=== PATIENT | female | born 1945 | race African-American/Black ===

== ENCOUNTER 2017-11-27 13:55 | Emergency (ER) | payer MEDICARE, OTHER ==
[~2017-11-27] VITALS: Ht 162.6 cm; Wt 76.0 kg
[2017-11-27 21:34] LABS: CLARITY URINE CLEAR (CLEAR); COLOR URINE YELLOW (YELLOW); KETONES URINE NEGATIVE (NEGATIVE); LEUKOCYTE ESTERASE URINE NEGATIVE (NEGATIVE); NITRITE URINE NEGATIVE (NEGATIVE); OCCULT BLOOD URINE NEGATIVE (NEGATIVE); PROTEIN URINE NEGATIVE (NEGATIVE); SPECIFIC GRAVITY URINE 1.023 (1.005-1.030); UROBILINOGEN URINE 0.2 E.U./dL (0.2-1.0)
[2017-11-27 22:58] LABS: BASOPHILS % 0.7 % (0.0-2.0); EOSINOPHILS % 0.7 % (0.0-5.0); HEMATOCRIT. 39.6 % (36.0-48.0); HEMOGLOBIN. 13.4 g/dL (12.0-16.0); MEAN CORPUSCULAR HEMOGLOBIN 28.9 pg (28.0-32.0); MEAN CORPUSCULAR VOLUME 85.6 fL (81.0-99.0); MEAN PLATELET VOLUME 8.2 fl (7.4-10.4); MONOCYTES % 13.6 % (2.0-8.0); PLATELET 264 x1000/uL (130-400); RED BLOOD CELL COUNT 4.63 mill/uL (4.2-5.4); RED CELL DISTRIBUTION WIDTH 14.9 % (11.6-14.6)
[2017-11-27 23:04] LABS: CHLORIDE 109 mEq/L (98-107)
[2017-11-27 23:06] LABS: PROTHROMBIN TIME 10.9 sec (9.4-11.6)
[2017-11-28 02:07] VITALS: BP 131/63
== END 2017-11-28 02:18 | disposition home or self-care (01) ==
LOC: ER 15:22
DX: M25.551 Pain in right hip (principal); R60.9 Edema, unspecified; R10.9 Unspecified abdominal pain; E11.9 Type 2 diabetes mellitus without complications; K76.0 Fatty (change of) liver, not elsewhere classified; I10 Essential (primary) hypertension; M10.9 Gout, unspecified; K80.20 Calculus of gallbladder without cholecystitis without obstruction; H40.9 Unspecified glaucoma
CPT/HCPCS: 36415; 73502; 76770; 80053; 81003; 83690; 85025; 85610; 93970; 99285